=== PATIENT | male | born 1965 | race Caucasian/White ===

== ENCOUNTER 2021-11-28 13:16 | Inpatient (IN) | payer OTHER, SELFPAY ==
[~2021-11-28] VITALS: Ht 188 cm; Wt 133.4 kg
[2021-11-28 13:25] VITALS: BP_SYST 124
--- NOTE | 2021-11-28 13:25 | NUR ---
Pt triaged and placed in bed 5 for evaluation.
--- NOTE | 2021-11-28 14:45 | NUR ---
Report given to JAVED Rose who will assume care.
--- NOTE | 2021-11-28 15:00 | NUR ---
ASSESS PT, PT IS AWAKE, ALERT AND ORIENTED, OBESE BUT COLOR GOOD OVERALL APPEARANCES FAIR IS AFREBILE ST ON THE MONITOR DENIES PAIN/DISCOMFORT PT STATED HE HAS NO PMH NOR IS HE ON ANY MEDS BUT HAS EDEMA IN [place] IS AN EX SMOKER STOP 11 YEARS AGO STATED HE GOT UP TO WALK AND COULDN'T DUE TO SEVERE SOB AND THIS IS THE FIRST TIME THIS HAS HAPPEN TO HIM
[2021-11-28 16:21] LABS: BASOPHILS # (AUTO) 0.1 K/uL (0.0-0.2); BASOPHILS % (AUTO) 0.6 % (0.0-2.0); EOSINOPHILS # (AUTO) 0.1 K/uL (0.0-0.4); EOSINOPHILS % (AUTO) 0.8 % (0.0-4.0); HEMATOCRIT 41.6 % (36-54); HEMOGLOBIN 13.7 g/dL (14.0-18.0); LYMPHOCYTES # (AUTO) 1.6 K/uL (1.0-5.5); LYMPHOCYTES % (AUTO) 17.2 % (20.5-51.5); MEAN CORPUSCULAR HEMOGLOBIN 30 pg (27-31); MEAN CORPUSCULAR HGB CONC 33 % (32-36); MEAN CORPUSCULAR VOLUME 92 fL (79.0-98.0); MONOCYTES # (AUTO) 0.6 K/uL (0.0-1.0); MONOCYTES % (AUTO) 6.9 % (1.7-9.3); NEUTROPHILS # (AUTO) 6.8 K/uL (1.8-7.7); NEUTROPHILS % (AUTO) 74.5 % (40.0-70.0); PLATELET COUNT (AUTO) 200 K/uL (130-430); RED BLOOD CELL COUNT(AUTO) 4.51 MIL/uL (4.2-6.2); RED CELL DISTRIBUTION WIDTH 14.3 % (9.0-15.0); WHITE BLOOD COUNT (AUTO) 9.1 K/uL (4.8-10.8)
--- NOTE | 2021-11-28 16:30 | NUR ---
RESTING QUIETLY DENIES PAIN/DISCOMFORT
[2021-11-28 16:34] LABS: CALCIUM 8.9 mg/dL (8.4-11.0); CREATININE 0.87 mg/dL (0.55-1.30)
[2021-11-28 16:46] LABS: ALBUMIN 3.3 g/dL (3.4-4.8); TOTAL BILIRUBIN 0.6 mg/dL (0.0-1.0)
--- NOTE | 2021-11-28 17:40 | NUR ---
TROP LEVEL 10.5 PHYSICIAN IS AWARE
[2021-11-28] MEDS ORDERED: IOHEXOL 350 mgI/mL, 150 ML INFUS..BTL IV ONE (18:04)
[2021-11-28] MEDS ORDERED: *HEPARIN PER PHARMACY XX ONE ×2 (19:45→21:15)
[2021-11-28 20:08] LABS: INR 1.1 (0.80-1.20); PROTHROMBIN TIME 10.7 SECS (9.5-12.5)
[2021-11-28] MEDS ORDERED: MORPHINE 4 MG INJ. 4 MG/ML VIAL IVP PRN (20:45)
[2021-11-28] MEDS ORDERED: ALBUTEROL SULFATE 0.083% 2.5 MG/3 ML VIAL.NEB INH PRN (20:45)
[2021-11-28] MEDS ORDERED: MORPHINE 2 MG/ML INJ. SYRINGE IVP PRN (20:45)
[2021-11-28] MEDS ORDERED: IPRATROPIUM BROM 0.5 MG/2.5 ML VIAL.NEB (ATROVENT) INH PRN (20:45)
[2021-11-28] MEDS ORDERED: ACETAMINOPHEN 325 MG TABLET PO PRN (20:45)
[2021-11-28] MEDS ORDERED: ONDANSETRON HCL 4 MG/2 ML VIAL IVP PRN (20:45)
--- NOTE | 2021-11-28 20:48 | NUR ---
Hien requests call into nurse station at [phone] for admit diagnosis and information. When patient is to be release, or [phone] can be called for release notification and patient picker tender helper.
[2021-11-28] MEDS ORDERED: HEPARIN SODIUM,PORCINE 3000 UNITS/0.6 ML BOLUS IVP PRN (21:00)
[2021-11-28] MEDS ORDERED: HEPARIN 25,000 UNITS in 250 ML PREMIX IV PRN (21:00)
[2021-11-28] MEDS ORDERED: HEPARIN SODIUM,PORCINE 5,000 UNITS/ML VIAL IV ONE (21:15)
[2021-11-28] MEDS ORDERED: HEPARIN 25,000 UNITS/D5W 250ML 250 ML IV ONE (21:24)
--- NOTE | 2021-11-28 22:05 | NUR ---
PATIENT ASSIGNED TO GO TO TELE 107B, SPOKE TO SAMANTHA
[2021-11-28 22:08] VITALS: BP_SYST 146
--- NOTE | 2021-11-28 22:35 | NUR ---
Admission Note Received patient from ER with diagnosis of BILATERAL PULMONARY EMBOLISM. Initial Plan of Care discussed-patient verbalized understanding. Oriented to room, call light, pain management and safety.
--- NOTE | 2021-11-28 22:44 | NUR ---
PATIENT TRANSFERED TO 107B REPORT GIVEN TO ASHLEY
[2021-11-28 23:28] VITALS: BP_SYST 118
--- NOTE | 2021-11-29 | NUR ---
ROUNDING NOTES Patient resting in bed - no s/s pain or distress noted. Respirations even and unlabored - head of bed elevated. IV site patent - no s/s redness, infection, or infiltration. Bed locked and in lowest position. Call light within reach - bed alarm on.
--- NOTE | 2021-11-29 01:51 | NUR ---
CALLED ALEJA KAY PER FACILITY REQUEST ENDORSED BY ER ANSWERED BY MARIE Mazariegos REPORT GIVEN.
[2021-11-29 06:55] LABS: BASOPHILS % (AUTO) 0.4 % (0.0-2.0); EOSINOPHILS # (AUTO) 0.1 K/uL (0.0-0.4); EOSINOPHILS % (AUTO) 1.5 % (0.0-4.0); HEMATOCRIT 36.8 % (36-54); HEMOGLOBIN 12.5 g/dL (14.0-18.0); LYMPHOCYTES # (AUTO) 2.3 K/uL (1.0-5.5); LYMPHOCYTES % (AUTO) 26.5 % (20.5-51.5); MEAN CORPUSCULAR HEMOGLOBIN 31 pg (27-31); MEAN CORPUSCULAR HGB CONC 34 % (32-36); MEAN CORPUSCULAR VOLUME 92 fL (79.0-98.0); MONOCYTES # (AUTO) 0.7 K/uL (0.0-1.0); NEUTROPHILS # (AUTO) 5.4 K/uL (1.8-7.7); NEUTROPHILS % (AUTO) 63.6 % (40.0-70.0); PLATELET COUNT (AUTO) 189 K/uL (130-430); RED CELL DISTRIBUTION WIDTH 14.3 % (9.0-15.0); WHITE BLOOD COUNT (AUTO) 8.5 K/uL (4.8-10.8)
[2021-11-29 07:13] LABS: CALCIUM 8.5 mg/dL (8.4-11.0); CREATININE 0.86 mg/dL (0.55-1.30); POTASSIUM 3.9 mmol/L (3.5-5.1)
[2021-11-29 08:00] VITALS: BP_SYST 99
--- NOTE | 2021-11-29 10:52 | NUR ---
CONSULTATION PAGED/CALLED Reason for Consultation: [] BILATERAL PE Person Who was Notified: [] LIZZ Consulting Physician: [] DR UGALDE Automatic Lathe Setter Specialty: [] PULMO Ordering Physician: [] DR BURKS
[2021-11-29] MEDS: HEPARIN SODIUM,PORCINE 2000 UNITS/0.4 ML BOLUS IVP PRN (11:30)
[2021-11-29] MEDS: HEPARIN 25,000 UNITS/D5W 250ML 250 ML IV PRN ×2 (11:35→20:34)
[2021-11-29 12:00] VITALS: BP_SYST 126
--- NOTE | 2021-11-29 15:44 | NUR ---
ULTRASOUND DONE OF BLE'S AND IT SHOWS + DVT, SO NOTIFIED DR BURKS IMMEDIATELY. NO NEW ORDERS, CONTINUE HEPARIN GTT PER PHARMACY. WILL CONTINUE TO MONITOR PT CLOSELY.
[2021-11-29 16:00] VITALS: BP_SYST 125
--- NOTE | 2021-11-29 16:28 | NUR ---
MIN ASSISTED PT TO BATHROOM, WITH OXYGEN AT 3L N/C AND HEPARIN GTT, PT STATES "I FEEL BETTER THAN YESTERDAY, LESS SHORT OF BREATH". PT VOIDED, ALL LINEN CHANGED. ESCORTED BACK TO BED.
[2021-11-29 22:14] VITALS: BP_SYST 112
[2021-11-30 02:30] VITALS: BP_SYST 117
--- NOTE | 2021-11-30 02:50 | NUR ---
CONSULTATION PAGED REASON FOR CONSULTATION: unprovoked bilateral PE WAS CONSULT CALLED? Y PERSON WHO WAS NOTIFIED: Hari CONSULTING PHYSICIAN: Dr. Patel REQUESTING PHYSICIAN: Dr. Fagan
[2021-11-30] MEDS: HEPARIN 25,000 UNITS/D5W 250ML 250 ML IV PRN (06:41)
[2021-11-30] MEDS: HEPARIN SODIUM,PORCINE 2000 UNITS/0.4 ML BOLUS IVP PRN (06:44)
[2021-11-30] MEDS ORDERED: HEPARIN 25,000 UNITS/D5W 250ML 250 ML IV ONE (07:15)
--- NOTE | 2021-11-30 07:20 | NUR ---
HANDOFF WITH CONNER LARSON RN. JONNA STALLINGS RN
[2021-11-30 07:54] LABS: BASOPHILS % (AUTO) 0.4 % (0.0-2.0); EOSINOPHILS # (AUTO) 0.2 K/uL (0.0-0.4); HEMATOCRIT 35.6 % (36-54); HEMOGLOBIN 12.1 g/dL (14.0-18.0); LYMPHOCYTES # (AUTO) 2.1 K/uL (1.0-5.5); MEAN CORPUSCULAR HEMOGLOBIN 31 pg (27-31); MEAN CORPUSCULAR HGB CONC 34 % (32-36); MEAN CORPUSCULAR VOLUME 91 fL (79.0-98.0); MONOCYTES # (AUTO) 0.7 K/uL (0.0-1.0); MONOCYTES % (AUTO) 7.8 % (1.7-9.3); NEUTROPHILS # (AUTO) 5.7 K/uL (1.8-7.7); NEUTROPHILS % (AUTO) 65.8 % (40.0-70.0); PLATELET COUNT (AUTO) 189 K/uL (130-430); RED BLOOD CELL COUNT(AUTO) 3.92 MIL/uL (4.2-6.2); WHITE BLOOD COUNT (AUTO) 8.7 K/uL (4.8-10.8)
--- NOTE | 2021-11-30 08:00 | NUR ---
notes 0800- CURRENTLY ON HEPARIN DRIP AT 2,000 UNITS/HR DUE TO PULMO EMBOLISM, DVT RIGHT LEG. NO SIGN OF BLEEDING NOTED. O2 DISCONTINUED. AMBULATE TO THE BATHROOM W/0 02. O2 SAT 94% ROOM AIR POST AMBULATION FROM THE BATHROOM. RIGHT LEG SWOLLEN DUE TO DVT. 1200- SEEN BY DR STARKEY, CONTINUE ON HEPARIN. ON ROOM AIR NO SOB.
[2021-11-30 08:08] LABS: CALCIUM 8.5 mg/dL (8.4-11.0); CREATININE 0.98 mg/dL (0.55-1.30); POTASSIUM 4.1 mmol/L (3.5-5.1)
[2021-11-30 08:47] VITALS: BP_SYST 110
[2021-11-30 11:30] VITALS: BP_SYST 130
[2021-11-30] MEDS ORDERED: DIATR MEGLU/DIATRIZ SOD 30 ML SOLUTION PO ONE (14:42)
[2021-11-30 16:00] VITALS: BP_SYST 120
--- NOTE | 2021-11-30 16:09 | NUR ---
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
--- NOTE | 2021-11-30 18:00 | NUR ---
NOTES 1600- APTT 58.8, NO CHANGE IN DOSAGE, APPT IN AM. 1700- ACCOMPANIED TO CT SCAN WITH HEPARIN DRIP 1800- NO SOB NOTED, CONTINUE ON HEPARIN DRIP AT 2,000UNITS/HR.
[2021-11-30 21:07] VITALS: BP_SYST 104
[2021-11-30 23:37] VITALS: BP_SYST 93
--- NOTE | 2021-12-01 05:08 | NUR ---
Nutrition Update Ha Scale 18 noted. Pt admitted for SOB Diet: 2gm Na BMI: 37.7 kg/m2 RD to follow per nutrition care standards.
[2021-12-01 06:53] LABS: BASOPHILS % (AUTO) 0.5 % (0.0-2.0); EOSINOPHILS # (AUTO) 0.1 K/uL (0.0-0.4); EOSINOPHILS % (AUTO) 1.8 % (0.0-4.0); HEMATOCRIT 36.9 % (36-54); HEMOGLOBIN 12.6 g/dL (14.0-18.0); LYMPHOCYTES # (AUTO) 2.2 K/uL (1.0-5.5); LYMPHOCYTES % (AUTO) 28.1 % (20.5-51.5); MEAN CORPUSCULAR HEMOGLOBIN 31 pg (27-31); MEAN CORPUSCULAR HGB CONC 34 % (32-36); MEAN CORPUSCULAR VOLUME 92 fL (79.0-98.0); MONOCYTES # (AUTO) 0.7 K/uL (0.0-1.0); MONOCYTES % (AUTO) 8.3 % (1.7-9.3); NEUTROPHILS # (AUTO) 4.8 K/uL (1.8-7.7); NEUTROPHILS % (AUTO) 61.3 % (40.0-70.0); PLATELET COUNT (AUTO) 177 K/uL (130-430); RED BLOOD CELL COUNT(AUTO) 4.02 MIL/uL (4.2-6.2); RED CELL DISTRIBUTION WIDTH 14.3 % (9.0-15.0); WHITE BLOOD COUNT (AUTO) 7.9 K/uL (4.8-10.8)
--- NOTE | 2021-12-01 07:30 | NUR ---
HANDOFF WITH CONNER COELLO RN. JONNA STALLINGS RN
[2021-12-01 07:36] LABS: CALCIUM 8.2 mg/dL (8.4-11.0); CREATININE 0.9 mg/dL (0.55-1.30); POTASSIUM 3.8 mmol/L (3.5-5.1)
[2021-12-01 08:19] VITALS: BP_SYST 126
[2021-12-01 11:31] VITALS: BP_SYST 124
[2021-12-01 15:26] VITALS: BP_SYST 132
--- NOTE | 2021-12-01 15:51 | NUR ---
NOTES LAVON KAY BIOMEDICAL ENGINEERING SUPERVISOR HEATHER STALLINGS HERE TO VISIT PT. HOSPITAL NEEDS TO CALL JANET KAY NURSING FIBERLINE SUPERVISOR [phone] OR [phone] PRIOR TO PT DISCHARGE FOR A NURSE TO NURSE REPORT. PT WAS ADMITTED VOLUNTARY AT [facility]
--- NOTE | 2021-12-01 18:51 | NUR ---
NURSING CONTINUE WITH HEPARIN DRIP AT 2,000 UNITS. PTT WITHIN THERAPEUTIC LEVEL. ALL NEEDS ATTENDED
[2021-12-01 19:55] VITALS: BP_SYST 123
[2021-12-02 00:58] VITALS: BP_SYST 106
[2021-12-02] MEDS ORDERED: HEPARIN 25,000 UNITS/D5W 250ML 250 ML IV ONE (01:00)
--- NOTE | 2021-12-02 02:44 | NUR ---
Late entry due to patient care. 1930 Initial note Received awake, alert & oriented x 4. Laying in bed, no c/o pain or discomfort. Heparin infusing to right forearm at 2000 units/hr. Able to ambulate without assist. Call light within reach. Bed in low, locked position. Fall precautions in place.
[2021-12-02 07:11] LABS: BASOPHILS % (AUTO) 0.7 % (0.0-2.0); EOSINOPHILS # (AUTO) 0.2 K/uL (0.0-0.4); EOSINOPHILS % (AUTO) 2.5 % (0.0-4.0); HEMATOCRIT 38.4 % (36-54); HEMOGLOBIN 12.8 g/dL (14.0-18.0); LYMPHOCYTES # (AUTO) 1.7 K/uL (1.0-5.5); LYMPHOCYTES % (AUTO) 25.3 % (20.5-51.5); MEAN CORPUSCULAR HEMOGLOBIN 31 pg (27-31); MEAN CORPUSCULAR HGB CONC 33 % (32-36); MEAN CORPUSCULAR VOLUME 92 fL (79.0-98.0); MONOCYTES # (AUTO) 0.6 K/uL (0.0-1.0); MONOCYTES % (AUTO) 9.2 % (1.7-9.3); NEUTROPHILS # (AUTO) 4.2 K/uL (1.8-7.7); NEUTROPHILS % (AUTO) 62.3 % (40.0-70.0); PLATELET COUNT (AUTO) 189 K/uL (130-430); RED BLOOD CELL COUNT(AUTO) 4.19 MIL/uL (4.2-6.2); RED CELL DISTRIBUTION WIDTH 14.3 % (9.0-15.0); WHITE BLOOD COUNT (AUTO) 6.8 K/uL (4.8-10.8)
--- NOTE | 2021-12-02 07:25 | NUR ---
Closing note Restin quietly, no apparent distress. Denies pain or discomfort. Heparin infusing @ 2000 units/hr. Awaiting am PTT results. Will give report to oncoming shift RN.
--- NOTE | 2021-12-02 07:45 | NUR ---
Opening Notes Patient is awake, alert and oriented x4. No resp distress noted. Breathing is even and unlabored, RA. Pt denies any pain at this time. IV site on right wrist 20 gauge intact. Heparin drip @ 2000 units, infusing well. No c/o abnormal bleeding. Pt is BRP, steady gait. NO c/o SOB at this time. All needs met. Safety and fall precautions in place. Bed in lowest position, alarm on, locked. Will continue to monitor.
[2021-12-02 07:54] VITALS: BP_SYST 133
[2021-12-02 08:00] LABS: CALCIUM 8.5 mg/dL (8.4-11.0); CREATININE 0.91 mg/dL (0.55-1.30)
--- NOTE | 2021-12-02 09:30 | NUR ---
Patient is being seen and examined by DR WATSON.
--- NOTE | 2021-12-02 10:00 | NUR ---
PTT: 43.6, increased Heparin drip to 2100 units/hr. No c/o abnormal bleeding. Next APPT draw at 1600. Will continue to monitor.
[2021-12-02] MEDS ORDERED: APIX5TAB PO (10:39)
[2021-12-02 11:28] VITALS: BP_SYST 111
--- NOTE | 2021-12-02 12:00 | NUR ---
Notes/Pending discharge Patient is awake, alert and oriented x4. No resp distress, on RA. Denies any pain. Heparin drip @ 210 ml/hr, infusing well. No c/o abnormal bleeding. Pt informed nurse that he s/w [facility] and they cannot take him at this time d/t covid outbreak. [facility] aware. charge nurse made aware. Will update Dr. Clark about covid outbreak.
--- NOTE | 2021-12-02 14:00 | NUR ---
S/w Dr. Clark, made aware of COVID outbreak. Pt may discharge home today. Pt made aware that he will need to DC home and voluntarily admit to [facility] when covid outbreak is clear. Per pt, he will need to call for a ride. He is not sure if he can get picked up tonight or tomorrow morning. Updated charge nurse. Addendum: 12/02/21 at 1728 by Pari Potts RN Per patient, he does not have a ride until tomorrow morning. Informed charge nurse. Will follow up with Dr. Clark.
--- NOTE | 2021-12-02 14:54 | NUR ---
CM: faxed the referral/dc order to return back to [facility] admitting # [phone], tel # [phone]. And received call back from [facility] stated : unable to take pt back due to Covid outbreak in the residential unit. >> I reported to [facility]/discharge planning department and requested for placement assistance. The referral faxed to [phone]. -- JAVED Yañez notified dr. Clark and received dc to home order and to f/u with out patient Psych.
[2021-12-02 15:24] VITALS: BP_SYST 127
--- NOTE | 2021-12-02 16:00 | NUR ---
Notes Patient is sleeping at this time. No resp distress. No signs of pain. Heparin drip at 21 ml/hr, infusing well. Will continue to monitor.
[2021-12-02] MEDS: HEPARIN 25,000 UNITS/D5W 250ML 250 ML IV PRN (16:05)
--- NOTE | 2021-12-02 18:26 | NUR ---
Closing Notes Patient is awake, alert and oriented x4. No resp distress noted, remains on RA. Pt denies any pain at this time. IV site on right wrist 20 gauge intact, Heparin drip @ 2100 unit/hr, infusing well. PTT results pending, will endorse to next nurse to follow up. Pending discharge. Per patient, he does not have a ride until tomorrow morning. Poor appetite during shift. All needs met. Safety and fall precautions in place. Bed in lowest position, alarm on, locked. Will continue to monitor.
--- NOTE | 2021-12-02 18:34 | NUR ---
Paged Dr. Clark.
[2021-12-02 19:00] VITALS: BP_SYST 106
--- NOTE | 2021-12-02 19:15 | NUR ---
change of shift.pt.presents heparin-drip infusion adminstration.ptt level drawn@1630p level:29.3.i am to administer 3000-u hepain dose;bolus x1 and adjust heparin-drip rate 300-u/hr per kg weight.i have apprised the pt.of the administration medication;heparin 3000-u/ bolus,heparin-drip rate increase.pt.utilizing urinal.general status stable.respiratory status stable@room air.call light/telephone w/in access of the pt.
--- NOTE | 2021-12-02 19:15 | NUR ---
S/w Dr. Clark and updated on patients deferred discharge. Nurse asked if we can DC the Heparin drip. Obtained new order to keep infusing Heparin drip per protocol until discharge. Noted and carried out. Will endorse to next nurse to change rate and give Heparin 3,000 unit bolus. Updated charge nurse.
--- NOTE | 2021-12-02 19:16 | NUR ---
HIGH ALERT NOTE: Called Dr. Clark back at 1915 identified within the medical roster to verify physician authenticity. Obtained new orders for Heparin 3,000 unit bolus x1 per heparin protocol. Noted and carried out. Pt denies any abnormal bleeding. New order for Heparin drip 2400 units/ml and Heparin 3,000 unit bolus x1. Endorsed to Martinez/KENNETH BURT.
[2021-12-02] MEDS ORDERED: HEPARIN SODIUM,PORCINE 5,000 UNITS/ML VIAL IVP ONE (19:30)
[2021-12-02 20:00] VITALS: BP_SYST 106
--- NOTE | 2021-12-02 20:00 | NUR ---
pt.assessed.v/s assessed values wnl.iv access intact heparin-drip infusing.iv access absent infiltration/inflammation.no c/pain nausea.i have apprised the pt.that snacks/beverages are available w/in the shift.no requests posited@this hour.urinal w/in access of the pt.pt.capable to reposition self.call light/telephone w/in access of the pt.
--- NOTE | 2021-12-02 21:00 | NUR ---
fallon has acted as co-sign heparin:3000u ivp bolus/increase heparin-drip rate per heparin-drip/ptt parameters.heparin-drip rate increased 300-u/hr+from:2100u/hr to 2400u/hr. rate:24ml/hr.
--- NOTE | 2021-12-02 22:00 | NUR ---
pt.assessed.pt.presents quiescent affect calm,somnolent.iv access intact heparin-drip infusing.iv access absent infiltration/ inflammation.per flacc pain mgx pt.absent facial grimaces/body posturing.pt.capable to reposition self.call light/telephone w/in access of the pt.
[2021-12-03] VITALS: BP_SYST 104
--- NOTE | 2021-12-03 | NUR ---
pt.assessed.v/s assessed values wnl.iv access intact absent infiltration/inflammation.heparin-drip infusing.no c/o pain,nausea. no requests posited@this hour.urinal w/in access of the pt.pt.capable to reposition self.call light/telephone w/in access of the pt.
[2021-12-03 01:24] VITALS: BP_SYST 135
[2021-12-03] MEDS: HEPARIN 25,000 UNITS/D5W 250ML 250 ML IV PRN (01:29)
--- NOTE | 2021-12-03 01:30 | NUR ---
heparin-drip bag changed.fallon acted as co-sign.iv access rt.wrist intact absent infiltration/inflammation. heparin-drip rate;2400=-u/hr=24ml/hr.
--- NOTE | 2021-12-03 02:00 | NUR ---
pt.assessed.pt.presents quiescent affect calm,somnolent.iv access intact absent infiltration/inflammation.heparin-drip infusing.urinal w/in access of the pt.per flacc pain mgx pt.absent facial grimaces/body posturing.pt.capable to reposition self.call light/telephone w/in access of the pt.
--- NOTE | 2021-12-03 04:00 | NUR ---
pt.assessed.pt.presents quiescent affect calm,somnolent.iuv access intact absent infiltration/inflammation;heparin-drip infusin-u/hr=24ml/hr.urinal w/in access of the pt.pt.capable to reposition self.call light/telephone w/in access of the pt.
--- NOTE | 2021-12-03 06:10 | NUR ---
pt.assessed.pt.presents quiescent affect calm,somnolent.iv access intact absent infiltration/inflammation.heparin drip infusing;2400-u/hr=24ml/hr.pr flacc pin mgx pt.absent facial grimaces/body posturing.pt.capable to reposition self. urinal w/in access of the pt.call light/telephone w/in access of the pt.
[2021-12-03 07:07] LABS: BASOPHILS % (AUTO) 0.4 % (0.0-2.0); EOSINOPHILS # (AUTO) 0.2 K/uL (0.0-0.4); EOSINOPHILS % (AUTO) 2.7 % (0.0-4.0); HEMOGLOBIN 12.9 g/dL (14.0-18.0); LYMPHOCYTES # (AUTO) 1.6 K/uL (1.0-5.5); LYMPHOCYTES % (AUTO) 24.6 % (20.5-51.5); MEAN CORPUSCULAR HEMOGLOBIN 31 pg (27-31); MEAN CORPUSCULAR HGB CONC 34 % (32-36); MEAN CORPUSCULAR VOLUME 92 fL (79.0-98.0); MONOCYTES # (AUTO) 0.5 K/uL (0.0-1.0); MONOCYTES % (AUTO) 8.4 % (1.7-9.3); NEUTROPHILS # (AUTO) 4.2 K/uL (1.8-7.7); NEUTROPHILS % (AUTO) 63.9 % (40.0-70.0); PLATELET COUNT (AUTO) 196 K/uL (130-430); RED BLOOD CELL COUNT(AUTO) 4.14 MIL/uL (4.2-6.2); RED CELL DISTRIBUTION WIDTH 13.9 % (9.0-15.0); WHITE BLOOD COUNT (AUTO) 6.5 K/uL (4.8-10.8)
--- NOTE | 2021-12-03 08:00 | NUR ---
MORNING ROUNDS: PATIENT AWAKE,ALERT AND ORIENTED X4.ON HEPARIN DRIP AT RIGHT WRIST.DRAW PTT PER PROTOCOL. NO DISTRESS. CALL LIGHT WITH IN REACH. BED LOCKED AT LOWEST POSITION. STABLE.
[2021-12-03 08:01] LABS: CALCIUM 8.6 mg/dL (8.4-11.0); CREATININE 0.85 mg/dL (0.55-1.30); POTASSIUM 3.9 mmol/L (3.5-5.1)
--- NOTE | 2021-12-03 08:41 | NUR ---
DC HOME: PER DR FISHMAN PATIENT CLEARED FOR DISCHARGE HOME AND CLEARED WITH CONSULTS WELL. WITH ELIQUIS 10MG PO BID X 2 WEEKS AND ASK DIALLO FOR REFILLS.F/U WITH HEMATOLOGY AND PULMONOLOGY OUT PATIENT.MD SPOKE TO PATIENT AT THE BEDSIDE AND INSTRUCTIONS GIVEN AND PATIENT VERBALIZED UNDERSTANDING OF INSTRUCTIONS.
[2021-12-03] MEDS ORDERED: APIXABAN 2.5 MG TABLET PO SCH (09:00)
--- NOTE | 2021-12-03 09:00 | NUR ---
DC HEPARIN DRIP: DC HEPARIN DRIP ORDERED BY DR FISHMAN.TO START ELQUIS PO.
[2021-12-03 09:14] VITALS: BP_SYST 130
[2021-12-03 10:45] VITALS: BP_SYST 115
[2021-12-03 12:00] VITALS: BP_SYST 115
--- NOTE | 2021-12-03 13:30 | NUR ---
D/C Patient Patient given medication reconciliation form and D/C instructions. Exit Care provided. Patient verbalized understanding. MD discussed with patient the results and treatment provided. Wheeled patient for discharge to home. Patient in stable condition, ID band removed. IV catheter removed, intact and dressing applied, no active bleeding.E-script send by md to patient's preferred pharmacy Patient educated on pain management. All belongings sent with patient.
== END 2021-12-03 13:35 | disposition home or self-care (01) | DRG 175 ==
LOC: SED 13:16 → STU 19:05 → SMU 12-01 16:34
PROVIDERS: ADMIT Hospitalist; ATTEND Hospitalist
DX: I26.99 Other pulmonary embolism without acute cor pulmonale (principal); J96.01 Acute respiratory failure with hypoxia; I82.401 Acute embolism and thrombosis of unspecified deep veins of right lower extremity; E44.1 Mild protein-calorie malnutrition; D68.59 Other primary thrombophilia; G40.909 Epilepsy, unspecified, not intractable, without status epilepticus; E66.9 Obesity, unspecified; K76.0 Fatty (change of) liver, not elsewhere classified; F17.200 Nicotine dependence, unspecified, uncomplicated; K57.90 Diverticulosis of intestine, part unspecified, without perforation or abscess without bleeding; Z20.822 Contact with and (suspected) exposure to COVID-19; Z68.37 Body mass index [BMI] 37.0-37.9, adult
CPT/HCPCS: 36415; 36600; 71046-TC; 71275; 76376; 76705; 80048; 80053; 82803-TC; 83880; 84484; 85025; 85379; 85610-TC; 85730-TC; 93005; 93306; 93970; 96374; 99285; G0378; J1644; Q9964; Q9967